=== PATIENT | male | born 1980 | race Caucasian/White ===

== ENCOUNTER → 2018-06-24 | Outpatient (CLI) | payer BC ==
--- NOTE | 2018-06-24 11:31 | PCVCIMAG ---
APPROVED REPORT Study performed: 06/24/2018 09:59:18 Exam: Dobutamine Stress Echo Indication: Chest pain, abn ekg, fam hx early CAD, hlp Patient Location: Echo lab Stress Nurse: Zena Eason RN Status: routine Ht: 5 ft 10 in HR: 85 bpm BP: 120/84 mmHg Rhythm: NSR Procedure The patient underwent an Exercise Stress Test using the Seth Protocol. Blood pressure, heart rate, and EKG were monitored. An Echocardiogram was performed by oral surgery technician in four stages in quad fashion. At peak stress, four selected images were obtained and placed side by side with resting images for comparison. Stress Test Details Stress Test: Exercise stress testing was performed using a Seth protocol. HR Resting HR: 85 bpmMax Heart Rate (APMHR): 185 bpm Max HR Achieved: 200 bpmTarget HR (85% APMHR): 157 bpm % of APMHR: 108 Recovery HR: 117 bpm HR response to stress: Normal HR response to stress BP Resting BP: 120/84 mmHg Max BP: 150/76 mmHg Recovery BP: 124/80 mmHg BP response to stress: Normal blood pressure response to stress. ECG Resting ECG: Sinus Rhythm w/ incomplete RBBB Stress ECG: Sinus Rhythm ST Change: Normal Arrhythmia: None Recovery ECG: Sinus Rhythm w/ incomplete RBBB Recovery ST Change: Normal Recovery Arrhythmia: None Clinical Reason for Termination: Maximal effort Stress Symptoms: none Exercise duration: 10 min 35 sec Highest Stage Achieved: Stage 4: 4.2 mph at 16% grade. Exercise capacity: 13.4 METs Overall Exercise Capacity for Age: Normal Scale: Active Angina Score: None Stress ECG Conclusion 1. Subjectively negative for ischemia 2. Echocardiographic negative for ischemia 3. Satisfactory functional capacity Pre-Stress Echo The resting Echocardiogram showed normal left ventricular contractility with an estimated Ejection Fraction of about >55%. Normal wall motion in all segments on baseline images. Post-Stress Echo The stress Echocardiogram showed normal left ventricular contractility with an estimated Ejection Fraction of about 65%. Normal augmentation of wall motion in all segments on post stress images. Clinical No clinical or ECG evidence for ischemia. Conclusion Clinical Response: Non-ischemic Exercise Capacity: Average Stress ECG Response: Non-ischemic Stress Echo Images: Non-ischemic The left ventricle is normal in size and wall thickness in both the rest and stress images. 1. Low risk study Other Information Study Quality: Adequate <Conclusion> The left ventricle is normal in size and wall thickness in both the rest and stress images. 1. Low risk study
== END | disposition home or self-care (01) ==
LOC: PCVCIMAG 13:00
PROVIDERS: ATTEND Internal Medicine
DX: R07.9 Chest pain, unspecified (principal); R94.31 Abnormal electrocardiogram [ECG] [EKG]; E78.5 Hyperlipidemia, unspecified; Z82.49 Family history of ischemic heart disease and other diseases of the circulatory system
CPT/HCPCS: 93325; 93351